=== PATIENT | female | born 1985 | race Caucasian/White ===

== ENCOUNTER 2018-02-17 20:08 | Emergency (ER) | payer OTHER ==
[~2018-02-17] VITALS: Ht 175.3 cm; Wt 61.2 kg
[~2018-02-17 20:08] MED LIST: JOLESSA1 EACH; NORCO 5-325 TA1 EACH PO; ONDANSETRON HCL4 M2 PO
[2018-02-17 20:11] VITALS: BP 124/76
[2018-02-17] MEDS ORDERED: LIDOCAINE VISC100 ML PO (20:23)
[2018-02-17] MEDS ORDERED: AMOXICILLIN 50500 MG PO (20:23)
[2018-02-17] MEDS ORDERED: NORCO 5-325 TA1 EACH PO (20:23)
[2018-02-17] MEDS ORDERED: IBUPROFEN 800800 MG PO (20:23)
== END 2018-02-17 20:29 | disposition home or self-care (01) ==
LOC: M.ERS 20:08
DX: K08.89 Other specified disorders of teeth and supporting structures (principal); F17.210 Nicotine dependence, cigarettes, uncomplicated

== ENCOUNTER 2019-12-22 12:54 | Emergency (ER) | payer OTHER, MEDICAID ==
[~2019-12-22] VITALS: Ht 172.7 cm; Wt 79.4 kg
[~2019-12-22 12:54] MED LIST changes: +AMOXICILLIN 50500 MG PO; +IBUPROFEN 800800 MG PO; +LIDOCAINE VISC100 ML PO
[2019-12-22 13:26] LABS: INFLUENZA A ANTIGEN Negative (Negative); INFLUENZA B ANTIGEN Negative (Negative)
[2019-12-22] MEDS ORDERED: TESSALON PERLE100 MG PO (13:52)
[2019-12-22] MEDS ORDERED: VIRTUSSIN AC L118 ML PO (13:52)
[2019-12-22] MEDS ORDERED: ALBUTEROL2.5 MG/31 INH (13:52)
[2019-12-22 14:52] VITALS: BP 121/70
== END 2019-12-22 14:52 | disposition home or self-care (01) ==
LOC: M.ERS 12:54
PROVIDERS: Physician Assistant
DX: J06.9 Acute upper respiratory infection, unspecified (principal); Z98.51 Tubal ligation status; Z90.49 Acquired absence of other specified parts of digestive tract

== ENCOUNTER 2020-05-30 20:06 | Emergency (ER) | payer OTHER, MEDICAID ==
[~2020-05-30] VITALS: Ht 172.7 cm; Wt 65.8 kg
[~2020-05-30 20:06] MED LIST changes: +ALBUTEROL2.5 MG/31 INH; +TESSALON PERLE100 MG PO; +VIRTUSSIN AC L118 ML PO
[2020-05-30] MEDS ORDERED: BACTRIM DS TAB1 EACH PO (21:11)
[2020-05-30] MEDS ORDERED: NORCO 5-325 TA1 EAC2 PO (21:11)
[2020-05-30 21:26] VITALS: BP 121/80
== END 2020-05-30 21:27 | disposition home or self-care (01) ==
LOC: M.ERS 20:06
DX: L02.414 Cutaneous abscess of left upper limb (principal); Z90.49 Acquired absence of other specified parts of digestive tract; Z98.51 Tubal ligation status

== ENCOUNTER 2020-12-05 18:17 | Emergency (ER) | payer OTHER, MEDICAID ==
[~2020-12-05] VITALS: Ht 172.7 cm; Wt 63.5 kg
[~2020-12-05 18:17] MED LIST changes: +BACTRIM DS TAB1 EACH PO; +NORCO 5-325 TA1 EAC2 PO
[2020-12-05] MEDS ORDERED: NORCO5 PO (18:43)
[2020-12-05] MEDS ORDERED: KEFLEX500 M1 PO (18:43)
[2020-12-05] MEDS ORDERED: IBUPROFEN 800800 M1 PO (18:43)
[2020-12-05] MEDS ORDERED: BACTRIM DS TAB1 EACH PO (18:43)
[2020-12-05 19:07] VITALS: BP 125/65
== END 2020-12-05 19:07 | disposition home or self-care (01) ==
LOC: M.ERS 18:17
DX: L02.415 Cutaneous abscess of right lower limb (principal); Z90.49 Acquired absence of other specified parts of digestive tract; Z98.51 Tubal ligation status

== ENCOUNTER 2021-05-18 10:49 | Emergency (ER) | payer OTHER, MEDICAID ==
[~2021-05-18] VITALS: Ht 172.7 cm; Wt 74.8 kg
[~2021-05-18 10:49] MED LIST changes: +IBUPROFEN 800800 M1 PO; +KEFLEX500 M1 PO; +NORCO5 PO
[2021-05-18] MEDS ORDERED: TRIAMCINOLONE 080 G3 TOP (11:11)
[2021-05-18] MEDS ORDERED: PREDNISONE10 MG PO (11:11)
[2021-05-18 11:18] VITALS: BP 132/83
== END 2021-05-18 11:18 | disposition home or self-care (01) ==
LOC: M.ERS 10:49
DX: L23.7 Allergic contact dermatitis due to plants, except food (principal); Z98.51 Tubal ligation status; Z90.49 Acquired absence of other specified parts of digestive tract; Z98.890 Other specified postprocedural states

== ENCOUNTER 2021-09-17 16:54 | Emergency (ER) | payer OTHER, MEDICAID ==
[~2021-09-17] VITALS: Ht 175.3 cm; Wt 72.6 kg
[~2021-09-17 16:54] MED LIST changes: +PREDNISONE10 MG PO; +TRIAMCINOLONE 080 G3 TOP
[2021-09-17] MEDS ORDERED: DOXYCYCLINE 10100 MG PO (18:05)
[2021-09-17] MEDS ORDERED: APAP W/CODEINE1 TA2 PO (18:05)
[2021-09-17 18:10] VITALS: BP 130/83
== END 2021-09-17 18:13 | disposition home or self-care (01) ==
LOC: M.ERS 16:54
DX: L03.113 Cellulitis of right upper limb (principal); Z98.890 Other specified postprocedural states; Z98.51 Tubal ligation status; Z90.49 Acquired absence of other specified parts of digestive tract